=== PATIENT | male | born 1995 | race Two or more races ===

== ENCOUNTER 2019-01-23 01:16 | Emergency (ER) | payer SELFPAY ==
[~2019-01-23] VITALS: Ht 157.5 cm; Wt 63.5 kg
[2019-01-23 05:00] VITALS: BP 102/59
== END 2019-01-23 05:44 | disposition home or self-care (01) ==
LOC: ER 01:19
DX: S60.221A Contusion of right hand, initial encounter (principal); W22.8XXA Striking against or struck by other objects, initial encounter; Y93.89 Activity, other specified; Y99.8 Other external cause status; Y92.89 Other specified places as the place of occurrence of the external cause
CPT/HCPCS: 29125; 73130